=== PATIENT | male | born 1990 ===

== ENCOUNTER → 2017-08-24 | Outpatient (REF) | payer BC ==
[2017-08-24 10:03] LABS: PLATELET COUNT, AUTOMATED 273 K/uL (150-450)
== END ==
PROVIDERS: ATTEND Nurse Practitioner Family
DX: I49.9 Cardiac arrhythmia, unspecified (principal)
CPT/HCPCS: 82040; 82247; 82310; 82374; 82435; 82565; 82947; 84075; 84132; 84155; 84295; 84450; 84460; 84484; 84520; 85025

== ENCOUNTER → 2017-08-27 | Outpatient (CLI) | payer BC ==
--- NOTE | 2017-08-28 18:09 | RT HOLTER TEST ---
FACILITY: [facility] [place] PATIENT NAME: HANNA PEREZ : [id number] MR: [id number]: [id number] EXAM DATE: ORDERING PHYSICIAN: JANN ODOM TECHNOLOGIST: CAMERON Hook-up date: 2017-08-27 12:32:00 Duration: 23:43:00 Test Indications: PALPATATIONS Medications: 18268 QRS complexes 125 Ventricular ectopics which represent <1 % of total QRS comp. 4 Supraventricular ectopics which represent <1 % of total QRS comp. * Paced QRS complexes which represent % of total QRS comp. VENTRICULAR ECTOPY 123 Isolated 0 Bigeminal Cycles 1 Couplets 0 Runs 0 Beats in Runs * Beats LONGEST at * BPM at :: -- * Beats FASTEST at * BPM at :: -- SUPRAVENTRICULAR ECTOPY 4 Isolated 0 Couplets 0 Runs 0 Beats in Runs * Beats LONGEST at * BPM at :: -- * Beats FASTEST at * BPM at :: -- HEART RATES 38 MIN at 23:46:06 2017-08-27 64 AVG 123 MAX at 18:45:06 2017-08-27 LONGEST RR 1.088 secs at 07:09:15 2017-08-28 S-T LEVELS Channel 1 -12.800 mm MIN at 12:32:00 2017-08-27 -12.800 mm MAX at 12:32:00 2017-08-27 Channel 2 -12.800 mm MIN at 12:32:00 2017-08-27 -12.800 mm MAX at 12:32:00 2017-08-27 Channel 3 -12.800 mm MIN at 12:32:00 2017-08-27 -12.800 mm MAX at 12:32:00 2017-08-27 There were no reported symptoms during the test. The patient was in a sinus rhythm throughout the te st with occasional ventricular ectopy and rare supraventricular ectopy. Confirmed by CHELSY ROSS ([id number]) on 08/28/2017 6:08:24 PM Referred By: Overread By: CHELSY ROSS
== END ==
LOC: RESP 12:16
PROVIDERS: ATTEND Nurse Practitioner Family
DX: I49.9 Cardiac arrhythmia, unspecified (principal); R00.2 Palpitations
CPT/HCPCS: 93225; 93226